=== PATIENT | female | born 1955 | race Two or more races ===

== ENCOUNTER 2018-03-04 14:32 | Inpatient (IN) | payer OTHER, SELFPAY ==
[~2018-03-04] VITALS: Ht 157.5 cm; Wt 62.7 kg
[2018-03-04 15:00] LABS: BASOPHILS # (AUTO) 0.05 x10^3/uL (0-0.1); BASOPHILS % (AUTO) 1 % (0-1); EOSINOPHILS # (AUTO) 0.07 x10^3/uL (0-0.4); EOSINOPHILS % (AUTO) 1 % (1-7); LYMPHOCYTES % (AUTO) 18 % (22-44); MD NO; MEAN CORPUSCULAR HEMOGLOBIN 29.8 pg (27.0-34.8); MEAN CORPUSCULAR HGB CONC 33.9 g/dL (32.4-35.8); MEAN CORPUSCULAR VOLUME 87.8 fL (80-100); MEAN PLATELET VOLUME 7.6 fL (7.4-10.4); MONOCYTES % (AUTO) 4 % (2-9); NEUTROPHILS # (AUTO) 7.78 x10^3/uL (1.8-6.8); NEUTROPHILS % (AUTO) 77 % (42-75); PLATELET COUNT 301 x10^3/uL (130-400); RED BLOOD COUNT 5.14 x10^6/uL (3.82-5.3); RED CELL DISTRIBUTION WIDTH 13.3 % (9.6-15.2)
[2018-03-04] MEDS ORDERED: LEVO50TA5 PO (15:06)
[2018-03-04 15:10] LABS: ALBUMIN 4.5 g/dL (3.4-5.0); ANION GAP 8 mmol/L (5-15); CALCIUM 9.4 mg/dL (8.5-10.1); CHLORIDE 106 mmol/L (98-107); CREATININE 0.75 mg/dL (0.55-1.02)
[2018-03-04] MEDS ORDERED: ONDANSETRON 2MG/ML, 2ML ONE (15:11)
[2018-03-04] MEDS ORDERED: FENTANYL PF 100 MCG/2ML ONE ×3 (15:12→17:57)
[2018-03-04 15:24] LABS: INTERNATIONAL NORMALIZED RATIO 0.92 (0.93-1.1); PROTHROMBIN TIME 9.5 Seconds (9.6-11.5)
[2018-03-04] MEDS ORDERED: FENTANYL PF 100 MCG/2ML IV ONE ×2 (15:30→18:30)
[2018-03-04] MEDS ORDERED: ONDANSETRON 2MG/ML, 2ML IVPush ONE (15:30)
[2018-03-04] MEDS ORDERED: LIDOCAINE-MPF 2%, 2ML ONE (15:45)
[2018-03-04] MEDS ORDERED: ONDANSETRON 2MG/ML, 2ML IVPush PRN (18:30)
[2018-03-04 19:56] VITALS: BP 154/83
[2018-03-04] MEDS: HEPARIN 5,000 UNITS/ML, 1ML SQ SCH (21:40)
[2018-03-04] MEDS: SODIUM CHLORIDE FLUSH 10ML SYR IVF SCH (21:40)
[2018-03-04] MEDS: OXYcodone IR 5MG TABLET PO PRN (22:40)
[2018-03-05] MEDS ORDERED: ZIPRASIDONE 20 MG INJ IM ONE (00:30)
[2018-03-05 02:07] VITALS: BP 106/72
[2018-03-05] MEDS: HEPARIN 5,000 UNITS/ML, 1ML SQ SCH ×3 (06:16→22:02)
[2018-03-05] MEDS: LEVOTHYROXINE 50 MCG TABLET PO SCH (06:16)
[2018-03-05 07:47] VITALS: BP 121/77
[2018-03-05] MEDS: SODIUM CHLORIDE FLUSH 10ML SYR IVF SCH ×2 (08:51→22:03)
[2018-03-05] MEDS: SENNA/DOCUSATE TABLET PO SCH (08:51)
[2018-03-05] MEDS: POLYETHYLENE GLYCOL 17 GM PACKET PO PRN (08:51)
[2018-03-05 12:36] VITALS: BP 119/74
[2018-03-05] MEDS: ACETAMINOPHEN 325 MG TABLET PO PRN (12:44)
[2018-03-05 19:45] VITALS: BP 117/75
[2018-03-06 01:54] VITALS: BP 105/64
[2018-03-06] MEDS: HEPARIN 5,000 UNITS/ML, 1ML SQ SCH ×4 (06:43→22:09)
[2018-03-06] MEDS: LEVOTHYROXINE 50 MCG TABLET PO SCH (06:43)
[2018-03-06 07:10] VITALS: BP 126/83
[2018-03-06] MEDS: ACETAMINOPHEN 325 MG TABLET PO PRN (08:40)
[2018-03-06] MEDS: SODIUM CHLORIDE FLUSH 10ML SYR IVF SCH ×2 (08:41→22:08)
[2018-03-06] MEDS: SENNA/DOCUSATE TABLET PO SCH (08:41)
[2018-03-06] MEDS: POLYETHYLENE GLYCOL 17 GM PACKET PO PRN (09:52)
[2018-03-06 13:27] VITALS: BP 118/76
[2018-03-06 19:56] VITALS: BP 118/77
[2018-03-07 00:08] VITALS: BP 143/90
[2018-03-07] MEDS: KETOROLAC 30 MG/1 ML IVPush PRN (00:29)
[2018-03-07] MEDS ORDERED: LIDOCAINE 2%, 50ML INFIL ONE (02:00)
[2018-03-07] MEDS: MORPHINE SULFATE 4 MG/ML, 1ML IVPush PRN ×2 (02:01→11:20)
[2018-03-07] MEDS: ACETAMINOPHEN 325 MG TABLET PO PRN (03:20)
[2018-03-07] MEDS: OXYcodone IR 5MG TABLET PO PRN ×4 (03:25→18:58)
[2018-03-07 06:46] VITALS: BP 122/80
[2018-03-07] MEDS: HEPARIN 5,000 UNITS/ML, 1ML SQ SCH ×3 (06:55→22:22)
[2018-03-07] MEDS: LEVOTHYROXINE 50 MCG TABLET PO SCH (07:24)
[2018-03-07] MEDS: POLYETHYLENE GLYCOL 17 GM PACKET PO PRN (07:56)
[2018-03-07] MEDS: SENNA/DOCUSATE TABLET PO SCH (07:56)
[2018-03-07] MEDS: SODIUM CHLORIDE FLUSH 10ML SYR IVF SCH ×2 (07:58→22:23)
[2018-03-07] MEDS: BISACODYL 10 MG SUPP PR PRN (13:56)
[2018-03-07 14:11] VITALS: BP 118/76
[2018-03-07 18:39] VITALS: BP 107/75
[2018-03-08] MEDS: OXYcodone IR 5MG TABLET PO PRN ×3 (00:10→23:07)
[2018-03-08] MEDS: ACETAMINOPHEN 325 MG TABLET PO PRN (00:10)
[2018-03-08] MEDS: KETOROLAC 30 MG/1 ML IVPush PRN ×2 (00:14→23:08)
[2018-03-08 02:08] VITALS: BP 106/74
[2018-03-08] MEDS: LEVOTHYROXINE 50 MCG TABLET PO SCH (06:00)
[2018-03-08] MEDS ORDERED: LEVOTHYROXINE 25 MCG TABLET ONE (06:42)
[2018-03-08] MEDS: HEPARIN 5,000 UNITS/ML, 1ML SQ SCH ×3 (06:45→23:08)
[2018-03-08 06:57] VITALS: BP 121/79
[2018-03-08] MEDS: POLYETHYLENE GLYCOL 17 GM PACKET PO PRN (08:54)
[2018-03-08] MEDS: SENNA/DOCUSATE TABLET PO SCH (08:55)
[2018-03-08] MEDS: SODIUM CHLORIDE FLUSH 10ML SYR IVF SCH ×2 (08:55→23:16)
[2018-03-08 12:44] VITALS: BP 120/80
[2018-03-08 19:45] VITALS: BP 111/71
[2018-03-09 01:30] VITALS: BP 118/69
[2018-03-09] MEDS: LEVOTHYROXINE 50 MCG TABLET PO SCH (06:52)
[2018-03-09] MEDS: HEPARIN 5,000 UNITS/ML, 1ML SQ SCH ×3 (06:53→23:19)
[2018-03-09 07:55] VITALS: BP 118/77
[2018-03-09] MEDS: SENNA/DOCUSATE TABLET PO SCH (09:13)
[2018-03-09] MEDS: OXYcodone IR 5MG TABLET PO PRN ×3 (09:13→21:41)
[2018-03-09] MEDS: ACETAMINOPHEN 325 MG TABLET PO PRN ×3 (09:13→21:41)
[2018-03-09] MEDS: POLYETHYLENE GLYCOL 17 GM PACKET PO PRN (09:13)
[2018-03-09] MEDS: SODIUM CHLORIDE FLUSH 10ML SYR IVF SCH ×2 (09:14→21:41)
[2018-03-09 14:00] VITALS: BP 128/73
[2018-03-09] MEDS: BISACODYL 10 MG SUPP PR PRN (16:37)
[2018-03-09 19:02] VITALS: BP 112/76
[2018-03-10 01:01] VITALS: BP 102/68
[2018-03-10] MEDS: LEVOTHYROXINE 50 MCG TABLET PO SCH (05:00)
[2018-03-10] MEDS ORDERED: LEVOTHYROXINE 25 MCG TABLET ONE (05:40)
[2018-03-10] MEDS: ACETAMINOPHEN 325 MG TABLET PO PRN (05:43)
[2018-03-10] MEDS: OXYcodone IR 5MG TABLET PO PRN ×2 (05:43→11:45)
[2018-03-10 06:30] VITALS: BP 123/70
[2018-03-10] MEDS: HEPARIN 5,000 UNITS/ML, 1ML SQ SCH (07:32)
[2018-03-10] MEDS: SODIUM CHLORIDE FLUSH 10ML SYR IVF SCH ×3 (08:59→22:22)
[2018-03-10] MEDS: SENNA/DOCUSATE TABLET PO SCH (08:59)
[2018-03-10] MEDS ORDERED: OMNIPAQUE 350 MG/ML, 100ML BOTTLE ONE (10:37)
[2018-03-10] MEDS ORDERED: DOXYCYCLINE 500 MG in SODIUM CHLORIDE 0.9% 50 ML INTRAPL ONE (13:00)
[2018-03-10 13:30] VITALS: BP 127/83
[2018-03-10] MEDS ORDERED: PROPOFOL 10 MG/ML, 20ML ONE (17:04)
[2018-03-10] MEDS ORDERED: SUCCINYLCHOLINE 20 MG/ML, 10ML ONE ×2 (17:05→17:33)
[2018-03-10] MEDS ORDERED: BUPIVACAINE/PF 0.5% ONE (17:10)
[2018-03-10] MEDS ORDERED: MIDAZOLAM 1 MG/ML, 2ML ONE (17:10)
[2018-03-10] MEDS ORDERED: EPINEPHRINE 1 MG/ML, 1ML ONE (17:10)
[2018-03-10] MEDS ORDERED: FENTANYL PF 250 MCG/5ML ONE (17:10)
[2018-03-10] MEDS ORDERED: CEFAZOLIN 1,000 MG ONE (17:33)
[2018-03-10] MEDS ORDERED: DEXAMETHASONE 4 MG/ML, 1ML ONE (17:33)
[2018-03-10] MEDS ORDERED: ROCURONIUM 10 MG/ML,10ML ONE (17:33)
[2018-03-10] MEDS ORDERED: ONDANSETRON 2MG/ML, 2ML ONE (17:33)
[2018-03-10] MEDS ORDERED: NALOXONE 0.4 MG/ML, 1ML ONE (18:11)
[2018-03-10] MEDS ORDERED: ONDANSETRON ODT 8 MG PO PRN (18:30)
[2018-03-10] MEDS ORDERED: MIDAZOLAM 1 MG/ML, 2ML IV PRN (18:30)
[2018-03-10] MEDS ORDERED: PROMETHAZINE 12.5 MG SUPP PR PRN (18:30)
[2018-03-10] MEDS ORDERED: hydrALAzine 20 MG/ML, 1ML IV PRN (18:30)
[2018-03-10] MEDS ORDERED: OXYcodone 5 MG/5 ML ORAL.SOL UDC PO PRN (18:30)
[2018-03-10] MEDS ORDERED: LABETALOL 5MG/ML, 20ML IV PRN (18:30)
[2018-03-10] MEDS ORDERED: ONDANSETRON 2MG/ML, 2ML IV PRN ×2 (18:30→21:00)
[2018-03-10] MEDS ORDERED: PROMETHAZINE 25 MG/ML, 1ML IV PRN (18:30)
[2018-03-10] MEDS ORDERED: ALBUTEROL SULFATE 2.5 MG/3 ML NPPB PRN (18:30)
[2018-03-10] MEDS ORDERED: MEPERIDINE/PF 25MG/0.5ML IVPush PRN (18:30)
[2018-03-10] MEDS ORDERED: HYDROmorphone 2 MG/ML, 1ML ONE (18:35)
[2018-03-10] MEDS ORDERED: OXYcodone 5 MG/5 ML ORAL.SOL UDC ONE (18:36)
[2018-03-10] MEDS: HYDROmorphone 1 MG/ML, 1ML IV PRN ×4 (18:39→19:29)
[2018-03-10] MEDS ORDERED: FENTANYL PF 100 MCG/2ML ONE (18:50)
[2018-03-10] MEDS: FENTANYL PF 100 MCG/2ML IV PRN ×2 (19:00→19:14)
[2018-03-10] MEDS: CEFAZOLIN PMX 2GM/100ML 100 ML IVPB SCH (22:21)
[2018-03-10] MEDS: POTASSIUM CHLORIDE 20 MEQ in D5%-0.45% NACL 1,000 ML IV SCH (22:21)
[2018-03-10] MEDS: ACETAMINOPHEN 500 MG TABLET PO SCH (22:22)
[2018-03-10] MEDS: MORPHINE SULFATE 4 MG/ML, 1ML IVPush PRN (22:51)
[2018-03-11 00:02] VITALS: BP 105/67
[2018-03-11] MEDS: MORPHINE SULFATE 4 MG/ML, 1ML IVPush PRN ×3 (02:45→15:36)
[2018-03-11 04:00] VITALS: BP 107/68
[2018-03-11] MEDS ORDERED: LEVOTHYROXINE 25 MCG TABLET ONE (04:45)
[2018-03-11] MEDS: LEVOTHYROXINE 50 MCG TABLET PO SCH (04:52)
[2018-03-11] MEDS: CEFAZOLIN PMX 2GM/100ML 100 ML IVPB SCH (04:52)
[2018-03-11] MEDS: OXYcodone IR 5MG TABLET PO PRN ×5 (04:52→20:48)
[2018-03-11] MEDS: ACETAMINOPHEN 500 MG TABLET PO SCH ×4 (06:01→20:48)
[2018-03-11] MEDS: SENNA/DOCUSATE TABLET PO SCH (07:47)
[2018-03-11] MEDS: POLYETHYLENE GLYCOL 17 GM PACKET PO PRN (07:47)
[2018-03-11] MEDS: ENOXAPARIN 40 MG/0.4 ML SQ SCH (07:47)
[2018-03-11] MEDS: SODIUM CHLORIDE FLUSH 10ML SYR IVF SCH ×4 (07:52→20:49)
[2018-03-11 08:37] VITALS: BP 110/74
[2018-03-11] MEDS: PSYLLIUM PACKET PO PRN (11:40)
[2018-03-11] MEDS: POTASSIUM CHLORIDE 20 MEQ in D5%-0.45% NACL 1,000 ML IV SCH (11:41)
[2018-03-11 14:13] VITALS: BP 117/78
[2018-03-11 19:29] VITALS: BP 106/59
[2018-03-12] MEDS: POTASSIUM CHLORIDE 20 MEQ in D5%-0.45% NACL 1,000 ML IV SCH ×3 (00:37→21:18)
[2018-03-12] MEDS: OXYcodone IR 5MG TABLET PO PRN ×5 (01:10→19:36)
[2018-03-12 01:40] VITALS: BP 95/59
[2018-03-12] MEDS ORDERED: LEVOTHYROXINE 25 MCG TABLET ONE (05:38)
[2018-03-12] MEDS: ACETAMINOPHEN 500 MG TABLET PO SCH ×4 (05:40→21:00)
[2018-03-12] MEDS: LEVOTHYROXINE 50 MCG TABLET PO SCH (05:40)
[2018-03-12 06:30] VITALS: BP 119/74
[2018-03-12] MEDS: BISACODYL 10 MG SUPP PR PRN ×2 (08:35→15:57)
[2018-03-12] MEDS: ENOXAPARIN 40 MG/0.4 ML SQ SCH (08:35)
[2018-03-12] MEDS: PSYLLIUM PACKET PO PRN (08:35)
[2018-03-12] MEDS: SODIUM CHLORIDE FLUSH 10ML SYR IVF SCH ×4 (09:00→21:00)
[2018-03-12] MEDS: SENNA/DOCUSATE TABLET PO SCH (09:00)
[2018-03-12] MEDS ORDERED: MAGNESIUM CITRATE 300ML ORAL SOL PO PRN (10:00)
[2018-03-12 12:30] VITALS: BP 95/58
[2018-03-12 19:58] VITALS: BP 113/71
[2018-03-12] MEDS ORDERED: DOCOSANOL TP PRN (20:00)
[2018-03-12] MEDS ORDERED: ACYCLOVIR 5% TP SCH (21:30)
[2018-03-13] MEDS: OXYcodone IR 5MG TABLET PO PRN ×4 (00:28→14:22)
[2018-03-13 00:59] VITALS: BP 114/74
[2018-03-13] MEDS ORDERED: LEVOTHYROXINE 25 MCG TABLET ONE (05:43)
[2018-03-13] MEDS: ACETAMINOPHEN 500 MG TABLET PO SCH ×3 (05:45→16:00)
[2018-03-13] MEDS: LEVOTHYROXINE 50 MCG TABLET PO SCH (05:45)
[2018-03-13] MEDS: SENNA/DOCUSATE TABLET PO SCH (07:59)
[2018-03-13] MEDS: ENOXAPARIN 40 MG/0.4 ML SQ SCH (07:59)
[2018-03-13] MEDS: SODIUM CHLORIDE FLUSH 10ML SYR IVF SCH ×2 (07:59)
[2018-03-13 08:50] VITALS: BP 145/76
[2018-03-13] MEDS: PSYLLIUM PACKET PO PRN (10:40)
[2018-03-13 13:51] VITALS: BP 111/69
[2018-03-13] MEDS: POTASSIUM CHLORIDE 20 MEQ in D5%-0.45% NACL 1,000 ML IV SCH (16:02)
[2018-03-13] MEDS ORDERED: PSYL3.4P8 PO (17:07)
[2018-03-13] MEDS ORDERED: OXYC5TAB3 PO (17:07)
[2018-03-13] MEDS ORDERED: ACET325T14 PO (17:07)
[2018-03-13] MEDS ORDERED: SENN1TAB8 PO (17:07)
[2018-03-13] MEDS ORDERED: POLY17PO5 PO (17:07)
[2018-03-13 17:33] VITALS: BP 129/80
== END 2018-03-13 17:41 | disposition home or self-care (01) | DRG 163 ==
LOC: ED 17:33 → EDIP 17:34 → ED 18:07 → 4NOR 18:40
PROVIDERS: ADMIT Internal Medicine; ATTEND Internal Medicine
PROC: 0W9B30Z Drainage of Left Pleural Cavity with Drainage Device, Percutaneous Approach (ICD-10-PCS; principal; 2018-03-04)
PROC: 0W9B00Z Drainage of Left Pleural Cavity with Drainage Device, Open Approach (ICD-10-PCS; 2018-03-07)
PROC: 0BBG4ZZ Excision of Left Upper Lung Lobe, Percutaneous Endoscopic Approach (ICD-10-PCS; 2018-03-10)
PROC: 3E0L4GC Introduction of Other Therapeutic Substance into Pleural Cavity, Percutaneous Endoscopic Approach (ICD-10-PCS; 2018-03-10)
PROC: 0B5P4ZZ Destruction of Left Pleura, Percutaneous Endoscopic Approach (ICD-10-PCS; 2018-03-10)
DX: J93.83 Other pneumothorax (principal); J96.01 Acute respiratory failure with hypoxia; E03.9 Hypothyroidism, unspecified; E78.5 Hyperlipidemia, unspecified; J93.82 Other air leak; Z80.0 Family history of malignant neoplasm of digestive organs; Z87.891 Personal history of nicotine dependence; J43.9 Emphysema, unspecified
CPT/HCPCS: 32551; 32557; 36415; 71045; 71275; 80048; 82040; 85025; 85610; 85730; 88307; 93005; 96374; C1729; G0378; J0171; J0690; J1100; J1170; J1644; J1650; J1885; J2250; J2310; J2405; J2704; J3010; J3480; J3490; Q9967; C1760; C1769; J0330

== ENCOUNTER 2018-03-13 19:50 | Emergency (ER) | payer OTHER ==
[~2018-03-13] VITALS: Ht 157.5 cm; Wt 60.0 kg
[~2018-03-13 19:50] MED LIST: ACET325T14 PO; LEVO50TA5 PO; OXYC5TAB3 PO; POLY17PO5 PO; PSYL3.4P8 PO; SENN1TAB7 PO
[2018-03-13 19:56] VITALS: BP 144/82
[2018-03-13] MEDS ORDERED: OXYcodone/APAP 5/325MG TABLET PO ONE (20:30)
[2018-03-13] MEDS ORDERED: OXYcodone/APAP 5/325MG TABLET ONE (20:46)
== END 2018-03-13 21:07 | disposition home or self-care (01) ==
LOC: ED 20:38
DX: R07.89 Other chest pain (principal); G89.18 Other acute postprocedural pain
CPT/HCPCS: 71045; 93005; 99284

== ENCOUNTER 2018-04-15 07:32 | Emergency (ER) | payer OTHER ==
[~2018-04-15] VITALS: Ht 157.5 cm; Wt 62.8 kg
[~2018-04-15 07:32] MED LIST changes: -SENN1TAB7 PO; +SENN1TAB8 PO
[2018-04-15] MEDS ORDERED: SODIUM CHLORIDE FLUSH 10ML SYR IVF ONE (08:00)
[2018-04-15] MEDS ORDERED: CHOL2000 PO (08:16)
[2018-04-15] MEDS ORDERED: VITA400C43 PO (08:16)
[2018-04-15] MEDS ORDERED: CALC-451 PO (08:16)
[2018-04-15] MEDS ORDERED: MAGN100T6 PO (08:16)
[2018-04-15 08:36] LABS: ALANINE AMINOTRANSFERASE 32 U/L (12-78); ALBUMIN 4.3 g/dL (3.4-5.0); ANION GAP 8 mmol/L (5-15); CHLORIDE 105 mmol/L (98-107); CREATININE 0.82 mg/dL (0.55-1.02)
[2018-04-15 08:41] LABS: ALKALINE PHOSPHATASE 75 U/L (45-117); BILIRUBIN,TOTAL 0.4 mg/dL (0.2-1.0); TOTAL PROTEIN 8.5 g/dL (6.4-8.2); TROPONIN I < 0.015 ng/mL (0.000-0.045)
[2018-04-15 08:44] LABS: BASOPHILS # (AUTO) 0.03 x10^3/uL (0-0.1); BASOPHILS % (AUTO) 1 % (0-1); EOSINOPHILS # (AUTO) 0.06 x10^3/uL (0-0.4); EOSINOPHILS % (AUTO) 1 % (1-7); LYMPHOCYTES # (AUTO) 1.77 x10^3/uL (1-3.4); LYMPHOCYTES % (AUTO) 28 % (22-44); MD NO; MEAN CORPUSCULAR HEMOGLOBIN 29.6 pg (27.0-34.8); MEAN CORPUSCULAR HGB CONC 33.7 g/dL (32.4-35.8); MEAN PLATELET VOLUME 7.5 fL (7.4-10.4); MONOCYTES # (AUTO) 0.28 x10^3/uL (0.2-0.8); MONOCYTES % (AUTO) 4 % (2-9); NEUTROPHILS % (AUTO) 67 % (42-75); PLATELET COUNT 321 x10^3/uL (130-400); RED BLOOD COUNT 4.91 x10^6/uL (3.82-5.3); RED CELL DISTRIBUTION WIDTH 13.3 % (9.6-15.2)
[2018-04-15 10:07] VITALS: BP 145/80
== END 2018-04-15 10:10 | disposition home or self-care (01) ==
LOC: ED 09:00
DX: R00.2 Palpitations (principal); Z90.49 Acquired absence of other specified parts of digestive tract
CPT/HCPCS: 36415; 71045; 80053; 83880; 84484; 85025; 93005; 99285

== ENCOUNTER 2021-02-24 12:21 | Emergency (ER) | payer MEDICARE, OTHER ==
[~2021-02-24] VITALS: Ht 157.5 cm; Wt 60.7 kg
[~2021-02-24 12:21] MED LIST changes: +CALC-451 PO; +CHOL2000 PO; +MAGN100T6 PO; -OXYC5TAB3 PO; +OXYC5TAB98 PO; +SENN-177 PO; -SENN1TAB8 PO; +VITA400C43 PO
--- NOTE | 2021-02-24 12:31 | NUR ---
STRATEGIC ACCOUNTS MANAGER: EKG DONE IN TRIAGE
--- NOTE | 2021-02-24 13:10 | NUR ---
RECEIVED REPORT FROM [place]. ASSUMING CARE AT THIS TIME. PT RESTING COMFORTABLY ON GURNEY. RESP EVEN AND UNLABORED. AWAITING ORDERS.
[2021-02-24 13:58] VITALS: BP 144/75
--- NOTE | 2021-02-24 13:58 | NUR ---
ERMD AT BEDSIDE FOR ASSESSMENT.
--- NOTE | 2021-02-24 14:11 | NUR ---
ERMD TO CONSULT WITH NEUROLOGY. PT AMBULATED TO RESTROOM WITH STEADY GAIT AND SPOUSE AT SIDE.
== END 2021-02-24 14:54 | disposition home or self-care (01) ==
LOC: ED 14:48
DX: G43.909 Migraine, unspecified, not intractable, without status migrainosus (principal); R94.31 Abnormal electrocardiogram [ECG] [EKG]
CPT/HCPCS: 93005; 99283